=== PATIENT | male | born 1940 | race Caucasian/White ===

== ENCOUNTER → 2020-04-18 | Outpatient (CLI) | payer MEDICARE ==
--- NOTE | 2020-04-18 16:37 | MR ---
EXAMINATION TYPE: MR lumbar spine wo/w con DATE OF EXAM: 04/18/2020 COMPARISON: None HISTORY: Low back pain TECHNIQUE: Multiplanar, multisequence images of the lumbar spine were acquired utilizing 9.5 mL intravenous Gada vist gadolinium contrast. L1-L2: Posterior broad-based disc bulge causes mild anterior mass effect on the thecal sac. No signif icant spinal stenosis. There is mild facet arthropathy. No significant foraminal encroachment. Minima l retrolisthesis grade 1 L1-2. L2-L3: Posterior broad-based disc bulge causes mild anterior mass effect on the thecal sac. Facet art hropathy with hypertrophy of the ligamentum flavum causes posterior lateral mass effect on the thecal sac. No significant spinal stenosis or foraminal encroachment. L3-L4: Facet arthropathy with hypertrophy ligamentum flavum causes posterior mass effect on the theca l sac. Circumferential posterior disc bulge contacts anterior thecal sac. No significant spinal steno sis or foraminal encroachment. L4-L5: Listhesis contributes to cause bilateral foraminal encroachment. There is no evident disc andrea iation. There is some facet arthropathy changes present. Laminectomy change is present on the left, t here is some enhancement at this level consistent with granulation tissue. No significant spinal sten osis. Some enhancement is present along the L5 nerve root on the left, intermediate signal is present at the posterior aspect of the thecal sac and along the left L5 nerve root L5-S1: Distal thecal sac is somewhat deviated towards the left of midline. There is no significant sp inal stenosis, no evident disc herniation. Posterior extension of endplate disc complex contacts ante rior thecal sac, possibly the left S1 nerve root, there are hypertrophic changes of the facets also p ossibly contacting the left S1 nerve root. Circumferential extension of endplate disc complex encroac hes somewhat on the foramina. Lumbar segments are remarkable for anterolisthesis grade 1 L4-5, posterior fusion changes L4-5 are pr esent with metallic screws, there is susceptibility artifact present. Loss of disc height signal is g reatest at L4-5, L5-S1 with associated vacuum phenomenon present, vacuum phenomenon also present L3-4 , L2-3 and L1-2, there is multilevel spondylosis with endplate discogenic marrow signal change. Lumba r vertebral bodies show preserved height.. No paraspinal masses are identified. Conus medullaris hemphill s a normal appearance. Probable cortical cyst associated with the left kidney. IMPRESSION: Postop changes, degenerative disc disease. Granulation tissue along the left L5 nerve root is suspect ed as described. Multilevel facet arthropathy. Additional findings above.
== END | disposition home or self-care (01) ==
LOC: RADMRIMAIN 14:32
PROVIDERS: ATTEND Orthopaedic Surgery Orthopaedic Surgery of the Spine
DX: M51.16 Intervertebral disc disorders with radiculopathy, lumbar region (principal); M43.16 Spondylolisthesis, lumbar region; M47.26 Other spondylosis with radiculopathy, lumbar region; I10 Essential (primary) hypertension; E11.9 Type 2 diabetes mellitus without complications; E78.5 Hyperlipidemia, unspecified; D17.79 Benign lipomatous neoplasm of other sites; Z98.890 Other specified postprocedural states; Z98.1 Arthrodesis status
CPT/HCPCS: 72158; A9585